=== PATIENT | female | born 1940 | race Caucasian/White ===

== ENCOUNTER 2017-11-30 11:26 | Inpatient (IN) | payer OTHER ==
[~2017-11-30] VITALS: Ht 165.1 cm; Wt 81.2 kg
[~2017-11-30 11:26] MED LIST: ACET325 PO; ASCO500 PO; ASPI325 PO; ATOR80 PO; CALCAVITD PO; CALCAVITDA PO; CHOL10002 PO; CYAN500 PO; EZET10 PO; FISH OIL 1,001000 MG PO; FISH1000 PO; FLAX PO; HYDCHL25 PO; IBUP400 PO; LEVFLO500 PO; LEVSOD100 PO; LEVSOD125 PO; LOSA50 PO; METF500 PO; METO50 PO; METO50ER PO; MULVITMINF PO; ONDA4ODT MM; PANT40 PO; ROSU10TA PO; Zofran Odt4 MG SL
[2017-12-09 03:51] LABS: BASOPHILS ABSOLUTE AUTO 0.01 K/mm3 (0.00-0.23); BASOPHILS PERCENT AUTO 0 % (0-2); EOSINOPHILS ABSOLUTE AUTO 0.08 K/mm3 (0.00-0.68); EOSINOPHILS PERCENT AUTO 1 % (0-6); Hematocrit 30.9 % (33.0-51.0); IMMATURE GRAN ABSOLUTE AUTO 0.03 K/mm3 (0.00-0.10); IMMATURE GRAN PERCENT AUTO 0 % (0-1); LYMPHOCYTES ABSOLUTE AUTO 1.78 K/mm3 (0.84-5.20); LYMPHOCYTES PERCENT AUTO 23 % (21-46); MONOCYTES ABSOLUTE AUTO 0.48 K/mm3 (0.16-1.47); MONOCYTES PERCENT AUTO 6 % (4-13); Mean Corpuscular HGB 29.2 pg (26.0-34.0); Mean Corpuscular HGB Conc 32.4 g/dL (31.5-36.5); Mean Corpuscular Volume 90 fL (80-100); Mean Platelet Volume 10.3 fL (9.1-12.4); NEUTROPHILS ABSOLUTE AUTO 5.25 K/mm3 (1.96-9.15); NEUTROPHILS PERCENT AUTO 69 % (41-73); Platelet Count 178 K/mm3 (150-400); RDW Coefficient Variation 12.7 % (11.7-14.2); RDW Standard Deviation 41.6 fL (35.1-46.3); Red Blood Cell Count 3.42 M/mm3 (3.80-5.20); White Blood Cell Count 7.63 K/mm3 (4.00-11.30)
[2017-12-09 04:11] LABS: Anion Gap 6 mmol/L (6-16); Blood Urea Nitrogen 18 mg/dL (8-24); Bun/Creatinine Ratio 28.7 (12.0-20.0); CO2, Blood 28 mmol/L (21-32); Calcium, Blood 8.6 mg/dL (8.5-10.1); Chloride, Blood 108 mmol/L (98-108); Creatinine, Blood 0.63 mg/dL (0.40-1.00); Glomerular Filtration Rate >60 (60-); Glucose, Blood 118 mg/dL (70-99); Potassium, Blood 4.5 mmol/L (3.5-5.5); Sodium, Blood 142 mmol/L (136-145)
[2017-12-09] MEDS ORDERED: HYDR1TAB94 PO (13:14)
== END 2017-12-09 14:40 | disposition home or self-care (01) | DRG 470 ==
LOC: SURS 12-08 08:58 → PRE IP 12-08 10:30 → SURS 12-08 14:09
PROVIDERS: Orthopaedic Surgery
PROC: 0SR90JZ Replacement of Right Hip Joint with Synthetic Substitute, Open Approach (ICD-10-PCS; principal; 2017-12-08 10:30)
DX: M16.11 Unilateral primary osteoarthritis, right hip (principal); Z01.818 Encounter for other preprocedural examination; E78.5 Hyperlipidemia, unspecified; I10 Essential (primary) hypertension; E11.40 Type 2 diabetes mellitus with diabetic neuropathy, unspecified; E03.9 Hypothyroidism, unspecified; G89.29 Other chronic pain; M54.9 Dorsalgia, unspecified
CPT/HCPCS: 36415; 72170; 80048; 82947; 85025; 86850; 86900; 86901; 88300; 97110; 97116; 97161; 97530; C1776; G8978; G8979; J0171; J0690; J0735; J1170; J1885; J2250; J2405; J2795; J3010; J7120

== ENCOUNTER 2019-01-19 06:58 | Day surgery (SDC) | payer OTHER ==
[~2019-01-19] VITALS: Ht 165.1 cm; Wt 80.8 kg
[~2019-01-19 06:58] MED LIST changes: +HYDR1TAB94 PO
== END 2019-01-19 10:00 | disposition home or self-care (01) ==
LOC: ORSCSDS 06:58
PROVIDERS: Podiatrist Foot & Ankle Surgery
PROC: 0QBQ0ZZ Excision of Right Toe Phalanx, Open Approach (ICD-10-PCS; principal; 2019-01-19 08:30)
DX: M20.61 Acquired deformities of toe(s), unspecified, right foot (principal); I10 Essential (primary) hypertension; F17.210 Nicotine dependence, cigarettes, uncomplicated; J44.9 Chronic obstructive pulmonary disease, unspecified; E11.42 Type 2 diabetes mellitus with diabetic polyneuropathy; Z79.84 Long term (current) use of oral hypoglycemic drugs; Z79.899 Other long term (current) drug therapy
CPT/HCPCS: 82947; J0690; J2250; J2405; J2704; J3010; J7120

== ENCOUNTER 2019-05-29 16:45 | Inpatient (IN) | payer OTHER ==
[~2019-05-29] VITALS: Ht 165.1 cm; Wt 80.6 kg
[~2019-05-29 16:45] MED LIST changes: +ACETAMINOPHEN PO; +CODEINE PO; +FISH OIL PO; +NAPR220 PO
--- NOTE | 2019-05-31 08:00 | NUR ---
Ambulatory in Day Surgery History, Chart, Medications and Allergies reviewed before start of procedure.Lungs clear T/O to Auscultation. Patient confirms NPO status and agrees with scheduled surgery. Patient reports completing Chlorhexadine shower X2 prior to admission to hospital.Surgical site prepped with 2% Chlorhexidine cloth wipe.
--- NOTE | 2019-05-31 13:30 | NUR ---
PATIENT STATES SHE 'FEELS A LOT BETTER THAN I DID' (WHEN SHE WOKE UP.) DAUGHTER AT BEDSIDE. TOLERATING ICE CHIPS AND JELLO.
--- NOTE | 2019-05-31 15:15 | NUR ---
PATIENT UP TO CHAIR WITH OCCUPATIONAL THERAPY. STATES VERY LITTLE PAIN; DENIES NEED FOR PAIN MED AT THIS TIME. TAKING SNACK. DRESSINGD D$I, WIGGLES THUMB. CIRC CHECKS WNL. CONT TO MONITOR.
--- NOTE | 2019-05-31 18:35 | NUR ---
SHIFT SUMMARY PATIENT UP TO CHAIR THIS AFTERNOON. RATES PAIN 2-3/10. DENIES NEED FOR PAIN MED. TAKING PO WELL W/O C/O. VOIDED. L HIP DRESSING D&I. CIRC CHECKS WNL. NO ACUTE CHANGES OR C/O AT THIS TIME.
[2019-06-01 04:21] LABS: BASOPHILS ABSOLUTE AUTO 0.01 K/mm3 (0.00-0.23); BASOPHILS PERCENT AUTO 0 % (0-2); EOSINOPHILS ABSOLUTE AUTO 0.03 K/mm3 (0.00-0.68); EOSINOPHILS PERCENT AUTO 0 % (0-6); Hematocrit 31.5 % (33.0-51.0); Hemoglobin 10.2 g/dL (11.5-16.0); IMMATURE GRAN ABSOLUTE AUTO 0.05 K/mm3 (0.00-0.10); IMMATURE GRAN PERCENT AUTO 1 % (0-1); LYMPHOCYTES ABSOLUTE AUTO 1.51 K/mm3 (0.84-5.20); LYMPHOCYTES PERCENT AUTO 14 % (21-46); MONOCYTES ABSOLUTE AUTO 0.75 K/mm3 (0.16-1.47); MONOCYTES PERCENT AUTO 7 % (4-13); Mean Corpuscular HGB 29.5 pg (26.0-34.0); Mean Corpuscular HGB Conc 32.4 g/dL (31.5-36.5); Mean Corpuscular Volume 91 fL (80-100); Mean Platelet Volume 10.1 fL (9.1-12.4); NEUTROPHILS PERCENT AUTO 78 % (41-73); Platelet Count 206 K/mm3 (150-400); RDW Coefficient Variation 12.4 % (11.7-14.2); Red Blood Cell Count 3.46 M/mm3 (3.80-5.20); White Blood Cell Count 10.85 K/mm3 (4.00-11.30)
[2019-06-01 04:44] LABS: Anion Gap 6 mmol/L (6-16); Blood Urea Nitrogen 19 mg/dL (8-24); Bun/Creatinine Ratio 24.2 (12.0-20.0); CO2, Blood 28 mmol/L (21-32); Calcium, Blood 8.6 mg/dL (8.5-10.1); Chloride, Blood 103 mmol/L (98-108); Creatinine, Blood 0.79 mg/dL (0.40-1.00); Glomerular Filtration Rate >60 (60-); Glucose, Blood 122 mg/dL (70-99); Potassium, Blood 4.2 mmol/L (3.5-5.5); Sodium, Blood 137 mmol/L (136-145)
--- NOTE | 2019-06-01 05:26 | NUR ---
SHIFT SUMMARY LYING IN SEMI FOWLERS. REPOSITIONS SELF IN BED. ABLE TO AMBULATE TO BATHROOM WITH STANDBY ASSISTANCE, REFUSES PAIN MEDS WHEN OFFERED SEVERAL TIMES. DENIES FURTHER NEEDS AT THIS TIME. SAFETY MEASURES IN PLACE. WILL GIVE HAND OFF TO ONCOMING SHIFT USING SBAR.
[2019-06-01] MEDS ORDERED: Percocet 5-3251 EACH PO (11:56)
[2019-06-01] MEDS ORDERED: Celebrex200 MG PO (11:57)
--- NOTE | 2019-06-01 13:09 | NUR ---
PATIENT D/C'D HOME WITH SPOUSE AT THIS TIME; BOTH STATE UNDERSTANDING OF MEDS, WOUND CARE FOR L HIP AND R THUMB, ACTIVITY, OP PT, F/U APPT, SAFETY, ETC. PATIENT STATES PAIN CONTROLLED WITH APAP AND TORADOL. TOLERATING PO. VOIDING. NO ACUTE CHANGES OR C/O AT THIS TIME.
--- NOTE | 2019-06-04 12:02 | NUR ---
06/04/19 1202 Raymundo Marina EDIT ITEMS AND EQUIPMENT
== END 2019-06-01 13:18 | disposition home or self-care (01) | DRG 470 ==
LOC: SURS 05-31 07:12 → PRE IP 05-31 07:30 → SURS 05-31 12:45
PROVIDERS: ADMIT Orthopaedic Surgery
PROC: 0SRB04A Replacement of Left Hip Joint with Ceramic on Polyethylene Synthetic Substitute, Uncemented, Open Approach (ICD-10-PCS; principal; 2019-05-31 08:30)
PROC: 0LN70ZZ Release Right Hand Tendon, Open Approach (ICD-10-PCS; 2019-05-31 08:30)
DX: M16.12 Unilateral primary osteoarthritis, left hip (principal); M65.311 Trigger thumb, right thumb; E11.40 Type 2 diabetes mellitus with diabetic neuropathy, unspecified; I10 Essential (primary) hypertension; K21.9 Gastro-esophageal reflux disease without esophagitis
CPT/HCPCS: 36415; 72170; 80048; 82947; 85025; 86850; 86900; 86901; 88300; 93225; 93226; 97116; 97161; 97165; 97530; 97535; C1776; J0171; J0690; J0735; J1100; J1885; J2370; J2405; J2704; J2710; J2795; J3010; J7120

== ENCOUNTER 2019-11-03 22:48 | Observation (INO) | payer OTHER ==
[~2019-11-03] VITALS: Ht 165.1 cm; Wt 81.3 kg
[~2019-11-03 22:48] MED LIST changes: +Celebrex200 MG PO; +Percocet 5-3251 EACH PO
[2019-11-03 23:34] LABS: BASOPHILS ABSOLUTE AUTO 0.03 K/mm3 (0.00-0.23); BASOPHILS PERCENT AUTO 0 % (0-2); EOSINOPHILS ABSOLUTE AUTO 0.13 K/mm3 (0.00-0.68); EOSINOPHILS PERCENT AUTO 1 % (0-6); Hematocrit 39.7 % (33.0-51.0); Hemoglobin 13.2 g/dL (11.5-16.0); IMMATURE GRAN ABSOLUTE AUTO 0.03 K/mm3 (0.00-0.10); IMMATURE GRAN PERCENT AUTO 0 % (0-1); LYMPHOCYTES ABSOLUTE AUTO 2.02 K/mm3 (0.84-5.20); LYMPHOCYTES PERCENT AUTO 18 % (21-46); MONOCYTES ABSOLUTE AUTO 0.64 K/mm3 (0.16-1.47); MONOCYTES PERCENT AUTO 6 % (4-13); Mean Corpuscular HGB 29.2 pg (26.0-34.0); Mean Corpuscular HGB Conc 33.2 g/dL (31.5-36.5); Mean Corpuscular Volume 88 fL (80-100); Mean Platelet Volume 10.1 fL (9.1-12.4); NEUTROPHILS ABSOLUTE AUTO 8.12 K/mm3 (1.96-9.15); NEUTROPHILS PERCENT AUTO 74 % (41-73); Platelet Count 266 K/mm3 (150-400); RDW Coefficient Variation 13.2 % (11.7-14.2); RDW Standard Deviation 42.5 fL (35.1-46.3); Red Blood Cell Count 4.52 M/mm3 (3.80-5.20); White Blood Cell Count 10.97 K/mm3 (4.00-11.30)
[2019-11-03 23:52] LABS: Alanine Aminotransfer (ALT/SGP 27 U/L (12-78); Albumin, Blood 3.5 g/dL (3.4-5.0); Albumin/Globulin Ratio 0.9 (0.8-1.8); Alk Phos 94 U/L (50-136); Anion Gap 8 mmol/L (6-16); Aspartate Aminotrans (AST/SGOT 21 U/L (12-37); Bilirubin, Total 0.4 mg/dL (0.1-1.0); Blood Urea Nitrogen 16 mg/dL (8-24); Bun/Creatinine Ratio 22.7 (12.0-20.0); CO2, Blood 26 mmol/L (21-32); Calcium, Blood 9.4 mg/dL (8.5-10.1); Chloride, Blood 105 mmol/L (98-108); Creatinine, Blood 0.71 mg/dL (0.40-1.00); Glomerular Filtration Rate >60 (60-); Glucose, Blood 135 mg/dL (70-99); Sodium, Blood 139 mmol/L (136-145); Total Protein, Blood 7.5 g/dL (6.4-8.2)
[2019-11-04 01:38] LABS: Source, Urine Clean Catch
[2019-11-04 01:41] LABS: Bilirubin, Urine Neg (Neg); Blood, Urine 2+ (Neg); Glucose Qualitative, Urine Neg (Neg); Ketones, Urine Neg (Neg); Leukocyte Esterase, Urine 1+ (Neg); Nitrite, Urine Neg (Neg); Protein, Urine Neg (Neg); Urobilinogen, Urine NORM (Normal)
[2019-11-04 01:43] LABS: Appearance, Urine Clear (Clear); Color, Urine Yellow (P-Yellow)
[2019-11-04 01:47] LABS: Bacteria Mod /hpf; Mucus Light (0-Heavy); Squamous Epithelial Cells Few /hpf (Few)
--- NOTE | 2019-11-04 05:58 | NUR ---
SHIFT SUMMARY PT NEW ADMIT THIS AM. AAOX4. DISCOMFORT AT TOLERABLE LEVEL FROM MEDICATIONS GIVEN IN ED. DENIES NAUSEA/EMESIS. PT REPORTING FLATUS + BM X1 YESTARDAY. IVF PER ORDERS. ORIENTED TO ROOM + CALL LIGHT USE. NADN. PT NOW RESTING IN BED. CALL LIGHT WITHIN REACH.
[2019-11-04 09:10] LABS: BASOPHILS ABSOLUTE AUTO 0.02 K/mm3 (0.00-0.23); BASOPHILS PERCENT AUTO 0 % (0-2); EOSINOPHILS ABSOLUTE AUTO 0.16 K/mm3 (0.00-0.68); EOSINOPHILS PERCENT AUTO 2 % (0-6); Hematocrit 36.5 % (33.0-51.0); Hemoglobin 11.9 g/dL (11.5-16.0); IMMATURE GRAN ABSOLUTE AUTO 0.03 K/mm3 (0.00-0.10); IMMATURE GRAN PERCENT AUTO 0 % (0-1); LYMPHOCYTES ABSOLUTE AUTO 2.14 K/mm3 (0.84-5.20); LYMPHOCYTES PERCENT AUTO 28 % (21-46); MONOCYTES PERCENT AUTO 8 % (4-13); Mean Corpuscular HGB 29.2 pg (26.0-34.0); Mean Corpuscular HGB Conc 32.6 g/dL (31.5-36.5); Mean Corpuscular Volume 90 fL (80-100); Mean Platelet Volume 10.3 fL (9.1-12.4); NEUTROPHILS ABSOLUTE AUTO 4.77 K/mm3 (1.96-9.15); NEUTROPHILS PERCENT AUTO 62 % (41-73); Platelet Count 209 K/mm3 (150-400); RDW Coefficient Variation 13.3 % (11.7-14.2); RDW Standard Deviation 43.8 fL (35.1-46.3); Red Blood Cell Count 4.08 M/mm3 (3.80-5.20); White Blood Cell Count 7.72 K/mm3 (4.00-11.30)
[2019-11-04 09:30] LABS: Anion Gap 4 mmol/L (6-16); Blood Urea Nitrogen 15 mg/dL (8-24); Bun/Creatinine Ratio 25.6 (12.0-20.0); CO2, Blood 27 mmol/L (21-32); Calcium, Blood 8.6 mg/dL (8.5-10.1); Chloride, Blood 108 mmol/L (98-108); Creatinine, Blood 0.59 mg/dL (0.40-1.00); Glomerular Filtration Rate >60 (60-); Glucose, Blood 103 mg/dL (70-99); Potassium, Blood 3.9 mmol/L (3.5-5.5); Sodium, Blood 139 mmol/L (136-145)
--- NOTE | 2019-11-04 15:37 | NUR ---
SHIFT SUMMARY: PT HAS DONE WELL THIS SHIFT. ALYSSA CLEAR LIQ DIET. DENIES N/V. ACTIVE BT X4. MEDICATED WITH 0.5MG DILAUDID ONCE PER EMAR. NEW ORDER FOR ORAL ABX WHICH PT WILL START TONIGHT. IVF INFUSING PER EMAR. PT INDEPENDENT IN ROOM. MEDICATED ONCE WITH TYLENOL FOR C/O HEADACHE. PT RESTING AT THIS TIME W/O COMPLAINTS.
--- NOTE | 2019-11-05 05:49 | NUR ---
SHIFT SUMMARY: LAURI IS A&OX4, TOLERATING CLEAR LIQUID DIET WELL AND INDEPENDENT IN THE ROOM. SHE REPORTS GOOD PAIN CONTROL WITH PERCOCET 5/325 MG. SHE REPORTS PASSING FLATUS. SHE IS ABLE TO MAKE HER NEEDS KNOWN. SHE IS LYING IN BED WITH THE CALL LIGHT IN REACH. WILL REPORT TO DAY SHIFT RN.
[2019-11-05] MEDS ORDERED: METR500 PO (14:10)
[2019-11-05] MEDS ORDERED: Percocet 5-3251 EACH PO (14:10)
[2019-11-05] MEDS ORDERED: CIPR500 PO (14:10)
--- NOTE | 2019-11-05 14:35 | NUR ---
DISCHARGE ABX'S CALLED TO PHARMACY OF CHOICE. SCRIPT FOR PERCOCET GIVEN. PT HAS F/U SCHEDULED FOR TUESDAY.
== END 2019-11-05 14:49 | disposition home or self-care (01) ==
LOC: ER 22:48 → SURS 22:49 → ER 11-04 03:50 → SURS 11-04 03:50
PROVIDERS: Physician Assistant; ADMIT Internal Medicine
DX: K57.32 Diverticulitis of large intestine without perforation or abscess without bleeding (principal); E11.9 Type 2 diabetes mellitus without complications; I10 Essential (primary) hypertension; E03.9 Hypothyroidism, unspecified; E78.5 Hyperlipidemia, unspecified; K21.9 Gastro-esophageal reflux disease without esophagitis; K52.9 Noninfective gastroenteritis and colitis, unspecified; Z79.82 Long term (current) use of aspirin; Z79.899 Other long term (current) drug therapy; Z79.84 Long term (current) use of oral hypoglycemic drugs; Z87.891 Personal history of nicotine dependence
CPT/HCPCS: 36415; 74176; 80048; 80053; 81001; 82947; 83690; 85025; 87086; 96365; 96375; 99285-25; A9270; A9270-GY; G0378; J0744; J1170; J1644; J1885; J2405; J7030

== ENCOUNTER 2020-07-25 14:47 | Emergency (ER) | payer OTHER ==
[~2020-07-25] VITALS: Ht 165.1 cm; Wt 79.4 kg
[~2020-07-25 14:47] MED LIST changes: +CIPR500 PO; +METR500 PO
[2020-07-25] MEDS ORDERED: METO100ER (15:10)
[2020-07-25] MEDS ORDERED: PANT20 PO (15:20)
== END 2020-07-25 17:15 | disposition home or self-care (01) ==
LOC: ER 14:47
DX: S06.0X0A Concussion without loss of consciousness, initial encounter (principal); I10 Essential (primary) hypertension; E11.9 Type 2 diabetes mellitus without complications; E78.5 Hyperlipidemia, unspecified; E03.9 Hypothyroidism, unspecified; Z87.891 Personal history of nicotine dependence; Z79.82 Long term (current) use of aspirin; Z79.899 Other long term (current) drug therapy; W01.198A Fall on same level from slipping, tripping and stumbling with subsequent striking against other object, initial encounter; Y92.009 Unspecified place in unspecified non-institutional (private) residence as the place of occurrence of the external cause
CPT/HCPCS: 70450; 99283-25

== ENCOUNTER → 2021-06-10 | Outpatient (CLI) | payer OTHER ==
[~2021-06-10] MED LIST changes: +METO100ER; +PANT20 PO
== END | disposition home or self-care (01) ==
LOC: LAB 11:08 → LAB SHORT 11:08
DX: D48.5 Neoplasm of uncertain behavior of skin (principal); L90.5 Scar conditions and fibrosis of skin
CPT/HCPCS: 88305

== ENCOUNTER → 2022-07-13 | Outpatient (CLI) | payer OTHER | END | disposition home or self-care (01) | DX: N39.0 Urinary tract infection, site not specified (principal); R30.0 Dysuria ==

== ENCOUNTER → 2022-07-22 | Outpatient (CLI) | payer OTHER ==
[2022-07-22 12:40] LABS: Source, Urine Clean Catch
[2022-07-22 15:26] LABS: Appearance, Urine Clear (Clear); Bilirubin, Urine Neg (Neg); Blood, Urine Neg (Neg); Color, Urine Yellow (P-Yellow); Glucose Qualitative, Urine Neg (Neg); Ketones, Urine Neg (Neg); Leukocyte Esterase, Urine Neg (Neg); Nitrite, Urine Neg (Neg); Protein, Urine Neg (Neg); Urobilinogen, Urine NORM (Normal)
== END | disposition home or self-care (01) ==
LOC: LAB 12:39 → LAB SHORT 12:39
PROVIDERS: Internal Medicine
DX: N39.0 Urinary tract infection, site not specified (principal)
CPT/HCPCS: 81003

== ENCOUNTER 2024-08-30 08:13 | Day surgery (SDC) | payer OTHER ==
[~2024-08-30] VITALS: Ht 165.1 cm; Wt 73.3 kg
[~2024-08-30 08:13] MED LIST changes: +Lactated Ringer's 1,000 ML IV ONE; +propofoL 50 ML IV ONE
[2024-08-30] MEDS ORDERED: NAPR220 (08:40)
[2024-08-30] MEDS ORDERED: EZET10 (08:40)
[2024-08-30] MEDS ORDERED: Lactated Ringer's 1,000 ML IV ONE (08:58)
[2024-08-30 10:33] VITALS: BP 122/62
== END 2024-08-30 10:34 | disposition home or self-care (01) ==
LOC: ORSCSDS 08:13
PROVIDERS: Internal Medicine Gastroenterology
PROC: 0DBH8ZX Excision of Cecum, Via Natural or Artificial Opening Endoscopic, Diagnostic (ICD-10-PCS; principal; 2024-08-30 09:45)
PROC: 0DJ08ZZ Inspection of Upper Intestinal Tract, Via Natural or Artificial Opening Endoscopic (ICD-10-PCS; principal; 2024-08-30 09:45)
PROC: 0DBP8ZX Excision of Rectum, Via Natural or Artificial Opening Endoscopic, Diagnostic (ICD-10-PCS; principal; 2024-08-30 09:45)
DX: R93.3 Abnormal findings on diagnostic imaging of other parts of digestive tract (principal); R19.4 Change in bowel habit; D12.8 Benign neoplasm of rectum; K63.5 Polyp of colon; R10.30 Lower abdominal pain, unspecified; R13.14 Dysphagia, pharyngoesophageal phase; K57.30 Diverticulosis of large intestine without perforation or abscess without bleeding; J44.9 Chronic obstructive pulmonary disease, unspecified; E78.5 Hyperlipidemia, unspecified; E03.9 Hypothyroidism, unspecified; I10 Essential (primary) hypertension; E11.51 Type 2 diabetes mellitus with diabetic peripheral angiopathy without gangrene; E11.42 Type 2 diabetes mellitus with diabetic polyneuropathy; Z79.84 Long term (current) use of oral hypoglycemic drugs; Z79.899 Other long term (current) drug therapy
CPT/HCPCS: 82947; 88305; J2704; J7120

== ENCOUNTER → 2024-12-14 | Outpatient (CLI) | payer OTHER ==
[~2024-12-14] MED LIST changes: +EZET10; -Lactated Ringer's 1,000 ML IV ONE; +NAPR220; -propofoL 50 ML IV ONE
[2024-12-14 10:18] LABS: Source, Urine Clean Catch
[2024-12-14 13:16] LABS: Appearance, Urine Clear (Clear); Bilirubin, Urine Neg (Neg); Blood, Urine Neg (Neg); Color, Urine Yellow (P-Yellow); Glucose Qualitative, Urine Neg (Neg); Ketones, Urine Neg (Neg); Leukocyte Esterase, Urine Neg (Neg); Nitrite, Urine Pos (Neg); Protein, Urine Neg (Neg); Urobilinogen, Urine NORM (Normal)
[2024-12-14 13:23] LABS: Red Blood Cells, Urine 0-2 /hpf (0-2)
[2024-12-14 13:24] LABS: Bacteria Many /hpf; Squamous Epithelial Cells Rare /hpf (Few)
== END | disposition home or self-care (01) ==
LOC: LAB SHORT 06:15 → LAB 06:15 → LAB FUT 12-13 10:50
PROVIDERS: Internal Medicine
DX: N39.41 Urge incontinence (principal)
CPT/HCPCS: 81001; 87077; 87086; 87186

== ENCOUNTER 2025-02-20 07:59 | Emergency (ER) | payer OTHER ==
[~2025-02-20] VITALS: Ht 165.1 cm; Wt 78.5 kg
[2025-02-20 09:25] LABS: Alanine Aminotransfer (ALT/SGP 50.0 U/L (12-78); Albumin, Blood 3.4 g/dL (3.4-5.0); Albumin/Globulin Ratio 1.0 (0.8-1.8); Anion Gap 8.0 mmol/L (3-11); Aspartate Aminotrans (AST/SGOT 32.0 U/L (12-37); Bilirubin, Total 0.6 mg/dL (0.1-1.0); Blood Urea Nitrogen 20.0 mg/dL (8-24); CO2, Blood 26.0 mmol/L (21-32); Calcium, Blood 8.8 mg/dL (8.5-10.1); Chloride, Blood 106.0 mmol/L (98-108); Creatinine, Blood 0.7 mg/dL (0.40-1.00); Globulin, Blood 3.4 g/dL (2.2-4.0); Glucose, Blood 135.0 mg/dL (70-99); Potassium, Blood 4.2 mmol/L (3.5-5.5); Sodium, Blood 136.0 mmol/L (136-145); Total Protein, Blood 6.8 g/dL (6.4-8.2)
[2025-02-20 09:31] LABS: Magnesium, Blood 1.8 mg/dL (1.6-2.4)
[2025-02-20 09:50] LABS: BASOPHILS ABSOLUTE AUTO 0.04 K/mm3 (0.00-0.23); BASOPHILS PERCENT AUTO 1 % (0-2); EOSINOPHILS ABSOLUTE AUTO 0.29 K/mm3 (0.00-0.68); EOSINOPHILS PERCENT AUTO 4 % (0-6); Hematocrit 38.4 % (33.0-51.0); Hemoglobin 13.1 g/dL (11.5-16.0); IMMATURE GRAN ABSOLUTE AUTO 0.02 K/mm3 (0.00-0.10); IMMATURE GRAN PERCENT AUTO 0 % (0-1); LYMPHOCYTES ABSOLUTE AUTO 2.06 K/mm3 (0.84-5.20); LYMPHOCYTES PERCENT AUTO 26 % (21-46); MONOCYTES ABSOLUTE AUTO 0.49 K/mm3 (0.16-1.47); MONOCYTES PERCENT AUTO 6 % (4-13); Mean Corpuscular HGB Conc 34.1 g/dL (31.5-36.5); Mean Corpuscular Volume 91 fL (80-100); NEUTROPHILS ABSOLUTE AUTO 4.95 K/mm3 (1.96-9.15); NEUTROPHILS PERCENT AUTO 63 % (41-73); NRBC ABSOLUTE 0.00 K/mm3 (0.00-0.02); NRBC Auto 0.0 /100 WBC (0.0-0.2); Platelet Count 188 K/mm3 (150-400); RDW Coefficient Variation 12.3 % (11.7-14.2); RDW Standard Deviation 40.8 fL (35.1-46.3)
[2025-02-20 12:45] VITALS: BP 152/64
== END 2025-02-20 13:06 | disposition home or self-care (01) ==
LOC: ER 07:59
PROVIDERS: Emergency Medicine; Physician Assistant
DX: R07.89 Other chest pain (principal); I10 Essential (primary) hypertension; E11.9 Type 2 diabetes mellitus without complications; E78.5 Hyperlipidemia, unspecified; E03.9 Hypothyroidism, unspecified; Z87.891 Personal history of nicotine dependence; Z79.890 Hormone replacement therapy; Z79.82 Long term (current) use of aspirin; Z79.84 Long term (current) use of oral hypoglycemic drugs; Z79.899 Other long term (current) drug therapy
CPT/HCPCS: 71045; 80053; 83690; 83735; 84484; 85025; 93005; 93010; 99285-25